=== PATIENT | male | born 1970 | race Caucasian/White ===

== ENCOUNTER → 2017-09-24 | Outpatient (REF) | payer OTHER ==
[2017-09-24 12:57] LABS: BASO # 0.1 10^3/uL (0.0-0.2); BASO % 1.1 % (0.0-1.0); EOS # 0.3 10^3/uL (0.0-0.50); EOS % 4.2 % (0.0-3.0); HEMATOCRIT 48.3 % (42.0-52.0); HEMOGLOBIN 16.6 g/dl (14.0-18.0); IMMATURE GRANULOCYTE % 0.2 % (0-3.0); LYMPH % 30.7 % (24.0-44.0); MEAN CORPUSCULAR HEMOGLOBIN 30.1 pg (27.0-33.0); MEAN CORPUSCULAR HGB CONC 34.4 g/dl (32.0-36.5); MEAN CORPUSCULAR VOLUME 87.7 fl (80.0-96.0); MONO # 0.6 10^3/uL (0.0-0.8); MONO % 9.2 % (0.0-5.0); NEUTROPHILS # 3.5 10^3/uL (1.8-7.7); NEUTROPHILS % 54.6 % (36.0-66.0); PLATELET COUNT, AUTOMATED 250 10^3/uL (150-450); RED BLOOD COUNT 5.51 10^6/uL (4.30-6.10); RED CELL DISTRIBUTION WIDTH 12.3 % (11.5-14.5); WHITE BLOOD COUNT 6.4 10^3/uL (4.0-10.0)
[2017-09-24 13:13] LABS: ALBUMIN 4.2 GM/DL (3.2-5.2); ALBUMIN/GLOBULIN RATIO 1.24 (1.00-1.93); ALKALINE PHOSPHATASE 97 U/L (45-117); ALT/SGPT 73 U/L (12-78); ANION GAP 8 MEQ/L (8-16); AST/SGOT 33 U/L (7-37); BILIRUBIN,TOTAL 0.8 MG/DL (0.2-1.0); BLOOD UREA NITROGEN 20 MG/DL (7-18); CALCIUM LEVEL 9.3 MG/DL (8.5-10.1); CARBON DIOXIDE LEVEL 32 MEQ/L (21-32); CHLORIDE LEVEL 100 MEQ/L (98-107); CHOLESTEROL LEVEL 243 MG/DL (<200); CHOLESTEROL RISK RATIO 7.838 (<5); GLOMERULAR FILTRATION RATE > 60.0 (>60); GLUCOSE, FASTING 90 MG/DL (70-100); HDL CHOLESTEROL 31 MG/DL (>40); LDL CHOLESTEROL 185.6 MG/DL (<100); NON-HDL-C 212 MG/DL; POTASSIUM SERUM 4.1 MEQ/L (3.5-5.1); SODIUM LEVEL 140 MEQ/L (136-145); TOTAL PROTEIN 7.6 GM/DL (6.4-8.2); TRIGLYCERIDES LEVEL 132 MG/DL (<150); URIC ACID 4.7 MG/DL (3.5-7.2)
[2017-09-24 13:35] LABS: ESTIMATED AVERAGE GLUCOSE 126 MG/DL (60-110)
== END ==
LOC: M LABDRAW1 10:35
DX: Z00.00 Encounter for general adult medical examination without abnormal findings (principal); M10.9 Gout, unspecified (principal); E78.2 Mixed hyperlipidemia; R73.01 Impaired fasting glucose
CPT/HCPCS: 84550

== ENCOUNTER → 2017-11-27 | Outpatient (CLI) | payer OTHER ==
[2017-11-27 15:18] LABS: BASO # 0.1 10^3/uL (0.0-0.2); BASO % 1.4 % (0.0-1.0); EOS # 0.2 10^3/uL (0.0-0.50); EOS % 2.9 % (0.0-3.0); HEMATOCRIT 47.7 % (42.0-52.0); HEMOGLOBIN 16.6 g/dl (13.5-17.5); IMMATURE GRANULOCYTE % 0.3 % (0-3.0); LYMPH # 2.1 10^3/uL (1.5-4.5); LYMPH % 32.2 % (24.0-44.0); MEAN CORPUSCULAR HEMOGLOBIN 29.9 pg (27.0-33.0); MEAN CORPUSCULAR HGB CONC 34.8 g/dl (32.0-36.5); MEAN CORPUSCULAR VOLUME 85.8 fl (80.0-96.0); MONO # 0.6 10^3/uL (0.0-0.8); MONO % 9.2 % (0.0-5.0); NEUTROPHILS # 3.5 10^3/uL (1.8-7.7); PLATELET COUNT, AUTOMATED 251 10^3/uL (150-450); RED BLOOD COUNT 5.56 10^6/uL (4.30-6.10); RED CELL DISTRIBUTION WIDTH 12.4 % (11.5-14.5); WHITE BLOOD COUNT 6.5 10^3/uL (4.0-10.0)
[2017-11-27 16:04] LABS: ALBUMIN 4.4 GM/DL (3.2-5.2); ALBUMIN/GLOBULIN RATIO 1.22 (1.00-1.93); ALKALINE PHOSPHATASE 92 U/L (45-117); ALT/SGPT 70 U/L (12-78); AMYLASE 39 U/L (25-115); ANION GAP 7 MEQ/L (8-16); AST/SGOT 35 U/L (7-37); BLOOD UREA NITROGEN 17 MG/DL (7-18); CALCIUM LEVEL 9.6 MG/DL (8.5-10.1); CARBON DIOXIDE LEVEL 30 MEQ/L (21-32); CHLORIDE LEVEL 103 MEQ/L (98-107); CREATININE FOR GFR 1.16 MG/DL (0.70-1.30); GLOMERULAR FILTRATION RATE > 60.0 (>60); GLUCOSE, FASTING 104 MG/DL (70-100); LIPASE 280 U/L (73-393); POTASSIUM SERUM 4.3 MEQ/L (3.5-5.1); SODIUM LEVEL 140 MEQ/L (136-145)
== END ==
LOC: M WUC 13:17
DX: R10.84 Generalized abdominal pain (principal)
CPT/HCPCS: 82150

== ENCOUNTER 2018-07-31 16:27 | Emergency (ER) | payer OTHER ==
[~2018-07-31] VITALS: Ht 182.9 cm; Wt 122.7 kg
[2018-07-31 16:27] VITALS: BP 162/101
[~2018-07-31 16:27] MED LIST: AUGM875T28 PO; AVEL1TAB3 PO; CRES40TA PO; GUAI1SOL7 PO; LORA-243 PO; MELO15TA28 PO; OMEP40CA2 PO; ONDA8TAB8 PO; OXYC1TAB23 PO; PROAAER10 INH; ZYLO300T6 PO
--- NOTE | 2018-07-31 17:43 | REP ---
Right shoulder: Three views. History: Injury in a fall. Findings: Three views of the right shoulder demonstrate normal alignment of the glenohumeral and acromioclavicular joints. Periarticular soft tissues are unremarkable. No fracture is seen. Impression: No fracture noted. Electronically Signed by Franklin Michaud MD 07/31/2018 06:25 P
[2018-07-31] MEDS ORDERED: NORCOTAB PO (17:47)
[2018-07-31] MEDS ORDERED: IBUP-1022 PO (17:47)
== END 2018-07-31 18:38 | disposition home or self-care (01) ==
LOC: M ED 16:27
DX: S40.011A Contusion of right shoulder, initial encounter (principal); W19.XXXA Unspecified fall, initial encounter; Y92.89 Other specified places as the place of occurrence of the external cause; Y99.0 Civilian activity done for income or pay; M10.9 Gout, unspecified; Z88.8 Allergy status to other drugs, medicaments and biological substances; Z79.899 Other long term (current) drug therapy

== ENCOUNTER 2018-10-27 06:50 | Day surgery (SDC) | payer OTHER ==
[~2018-10-27] VITALS: Ht 177.8 cm; Wt 132.0 kg
[~2018-10-27 06:50] MED LIST changes: +IBUP-1022 PO; +LISI10TA4 PO; +LR 1,000 ML IV ONE; +NORCOTAB PO
[2018-10-27] MEDS ORDERED: dexameTHASONE 10 MG/1 ML VIAL PRES.FREE (J1100) ONE (06:51)
[2018-10-27] MEDS ORDERED: LIDOCAINE 1% MDV 20ML VIAL ONE (06:51)
[2018-10-27] MEDS ORDERED: BUPIVACAINE/EPIN 0.25% 30 ML VIAL ONE (06:51)
[2018-10-27] MEDS ORDERED: fentaNYL 100 MCG/2 ML INJECTION (J3010) As Ordered ONE (07:41)
[2018-10-27] MEDS ORDERED: MIDAZOLAM INJ 2 MG/2 ML VIAL (J2250) As Ordered ONE ×2 (07:41→07:47)
[2018-10-27] MEDS ORDERED: LIDOCAINE 2% INJ 100 MG/5 ML SDV (FOR ANES.) As Ordered ONE (07:46)
[2018-10-27] MEDS ORDERED: PROPOFOL 200 MG/20 ML VIAL As Ordered ONE (07:46)
[2018-10-27] MEDS ORDERED: fentaNYL 250 MCG/5 ML INJECTION (J3010) As Ordered ONE (07:46)
[2018-10-27] MEDS ORDERED: ROCURONIUM BROMIDE 50 MG/5 ML VIAL As Ordered ONE (07:46)
[2018-10-27] MEDS ORDERED: EPINEPHrine 1MG/ML INJ 30ML MD-VIAL As Ordered ONE (08:13)
[2018-10-27] MEDS ORDERED: LIDOCAINE 1% MDV 20ML VIAL As Ordered ONE (08:13)
[2018-10-27] MEDS ORDERED: fentaNYL 100 MCG/2 ML INJECTION (J3010) IV ONE (08:30)
[2018-10-27] MEDS ORDERED: MIDAZOLAM INJ 2 MG/2 ML VIAL (J2250) IV ONE (08:30)
[2018-10-27] MEDS ORDERED: GLYCOPYRROLATE INJ 0.2 MG/ML 2 ML VIAL As Ordered ONE (08:39)
[2018-10-27] MEDS ORDERED: ceFAZolin 1GM INJ (J0690 PER 500MG) As Ordered ONE (08:53)
[2018-10-27] MEDS ORDERED: KETOROLAC 60 MG/2 ML VIAL (J1885) As Ordered ONE (09:55)
[2018-10-27] MEDS ORDERED: METOCLOPRAMIDE INJ 10MG/2ML VIAL (J2765) As Ordered ONE (09:55)
[2018-10-27] MEDS ORDERED: ONDANSETRON 4MG/2ML VIAL (J2405) As Ordered ONE (09:55)
[2018-10-27] MEDS ORDERED: dexameTHASONE 4 MG/ML 1ML VIAL (J1100) As Ordered ONE (09:55)
[2018-10-27] MEDS ORDERED: SUGAMMADEX SODIUM 500 MG/5 ML VIAL (BRIDION) As Ordered ONE (09:55)
[2018-10-27] MEDS ORDERED: fentaNYL 100 MCG/2 ML INJECTION (J3010) IV PRN (12:00)
[2018-10-27] MEDS ORDERED: ONDANSETRON 4MG/2ML VIAL (J2405) IV PRN (12:00)
[2018-10-27] MEDS ORDERED: LR 1,000 ML IV SCH ×2 (12:00→12:30)
[2018-10-27] MEDS ORDERED: NORCO, ANEXSIA 5/325MG TABLET (HYDROcodone/ACETAMINOPHEN) PO PRN (12:00)
[2018-10-27 13:50] VITALS: BP 166/89
[2018-10-27] MEDS ORDERED: IBUP-1022 PO (21:09)
--- NOTE | 2018-10-28 07:24 | RO ---
DATE OF PROCEDURE: 10/27/2018 PREOPERATIVE DIAGNOSES: 1. Right shoulder rotator cuff tear. 2. Right shoulder biceps tendon subluxation. 3. Right shoulder impingement. POSTOPERATIVE DIAGNOSES: 1. Right shoulder rotator cuff tear. 2. Right shoulder biceps tendon subluxation. 3. Right shoulder impingement. 4. Anterior, superior and posterior labral tearing. PROCEDURE: 1. Right shoulder arthroscopic rotator cuff repair (subscapularis). 2. Right shoulder open subpectoral biceps tenodesis. 3. Right shoulder arthroscopic labral debridement including anterior, superior and posterior labrum. 4. Right shoulder arthroscopic subacromial decompression. SURGEON: Dr. Rafa oCles. COOK HOUSE SUPERVISOR: AKIRA Magaña ANESTHESIA: General with preoperative nerve block. IV FLUIDS: Lactated Ringer's. ESTIMATED BLOOD LOSS: 10 mL IMPLANTS: Arthrex proximal biceps button times one and Arthrex 4.75 Peak SwiveLock anchor times one. CLOSURE: Nylon and Monocryl. PROCEDURE: Patient identified in the preoperative holding area. The right arm was marked by myself. He had an interscalene nerve block by anesthesia. He was brought to the operating room, placed supine on a well-padded OR table with an extra large vargas bag. General anesthesia was then induced. He received 3 grams of IV cefazolin within 1 hour of the incision. Examination under anesthesia revealed 170 degrees of forward flexion, 90 of external rotation with his arm at his side and no increased anterior or posterior translation. He was then placed in the left side down lateral decubitus position with an axillary roll and all bony prominences were well padded. He had bilateral Venodyne boots for DVT prophylaxis. The right arm was placed into Arthrex Star sleeve lateral decubitus traction device and 10 pounds of traction were applied. He was secured to the OR table. The right shoulder was then prepped and draped in normal sterile fashion with Chloraprep. Prior to incision, time-out was performed per hospital protocol. Tamiko Modi was present for the entire procedure and participated in all essential portions of the procedure. This included patient positioning and draping, holding the arthroscope, assisting with the placement of the anchor, assisting with the whip stitch of the biceps tendon, performing the wound closure and manipulating the arm for the subscapularis repair. The right shoulder was insufflated with lactated Ringer's. A standard posterior inferior viewing portal made with 11-blade and the 30 degrees arthroscope was introduced. The diagnostic arthroscopy revealed diffuse tearing of the anterior, superior and posterior labrum. Grade 1 chondromalacia diffusely. The articular surface of the SS, IS and SSC were intact. The subscapularis was torn and retracted almost to the glenoid. The long head of the biceps was visualized somewhat medially subluxated. An anterior working portal was established through the rotator interval and a cuff grasper used to grab the subscapularis confirming the a subscapularis repair was required. This necessitated at least a biceps tenotomy and we had discussed biceps tenodesis prior to surgery. Meniscal biter was used to cut the biceps tendon off the superior labrum and it was seen to withdrawn from the joint. Shaver was then used to perform a labral debridement of the frayed superior labrum but as well as the anterior and posterior labrum. I also performed a synovectomy in the rotator interval to skeletonize the subscapularis. I did not release the comma tissue. I then proceeded with an open subpectoral biceps tenodesis. Incision made a 15 blade just lateral to the axilla. Excess fat removed with Bovie cautery and then dissection down to the biceps fascia which was carefully opened with Metzenbaum scissors. The long head of the biceps tendon was identified and retrieved with the right angle clamp. The Arthrex proximal biceps kit was opened and a running locking whip stitch placed with the FiberLoop. Sutures were loaded through the button per routine. Drill hole was made with the appropriate drill bit within the bicipital groove just proximal to the lower edge of the pectoral major tendon. Irrigation used to remove bony debris. Button was passed through the drill hole. Sutures were toggled which flipped the button. The tendon was docked along the bicipital groove. The rough resting tension here was found to be appropriate. Free needle was then used to pass one limb of suture back through the tendon and knots were tied by hand. This nicely restored the resting tension. Excess suture trimmed and discarded. I extensively irrigated the incision multiple times, closed in layered fashion. Deeper fascia closed with #2-0 Vicryl. Then a 2-0 Vicryl, running 3-0 Monocryl. At the end of the case, Steri-Strips were placed. The arthroscope was placed back into the joint and an accessory superolateral portal was created. Additional releases along the anterior, superior and posterior aspects of the subscapularis tendon were performed and the shaver was used to remove all soft tissue off the lesser tuberosity and to remove about 2-3 mm of articular cartilage to somewhat medialized the footprint. The scorpion was then used to pass FiberWire suture through the upper border of the tear to act as a traction stitch. Tahoma tape was then passed with the scorpion further inferior and medial through thick healthy tissue. The traction stitch was replaced as it had been damaged with the final FiberWire and then the FiberWire and Tahoma tape were brought out the original anterior portal loaded through 4.75 mm Peak SwiveLock anchor and the appropriate awl used to create a socket in the lesser tuberosity. The anchor was docked, sutures tensioned by hand. [place] was then malleted and inserted by hand with excellent fixation. This nicely advanced the subscapularis onto the lesser tuberosity. Excess suture trimmed and was cut with arthroscopic continuous pillowcase cutter. The repair was probed and found to be very secure. The arthroscope was then placed in the subacromial space and a lateral working portal established. There was extensive bursitis. I performed an extensive bursectomy with cautery and shaver. The CA ligament was somewhat hypertrophied however, there is no significant subacromial spur. I did not perform an acromioplasty. The shoulder was gently internally and externally rotated. The rotator cuff moved as a unit. I probed the entire supra- and infraspinatus with a switching stick. I did not appreciate any tearing. The supraspinatus had a somewhat thickened appearance and feel consistent with some tendinopathy but no repair or debridement indicated. Shoulder was then irrigated and drained. Portals closed with Nylon suture. Bulky sterile dressing was applied and then he was carefully placed into the R-2 sling. All counts correct times two. Complications none. He was transferred to postanesthesia care unit in stable condition.
== END 2018-10-27 13:50 | disposition home or self-care (01) ==
LOC: M SDC 06:50
PROVIDERS: ATTEND Orthopaedic Surgery
DX: M75.111 Incomplete rotator cuff tear or rupture of right shoulder, not specified as traumatic (principal); M75.41 Impingement syndrome of right shoulder; S43.491A Other sprain of right shoulder joint, initial encounter; S46.111A Strain of muscle, fascia and tendon of long head of biceps, right arm, initial encounter; I10 Essential (primary) hypertension; E78.00 Pure hypercholesterolemia, unspecified; M10.9 Gout, unspecified; K21.9 Gastro-esophageal reflux disease without esophagitis; M12.9 Arthropathy, unspecified; R06.83 Snoring; G47.30 Sleep apnea, unspecified; E66.9 Obesity, unspecified; Z68.38 Body mass index [BMI] 38.0-38.9, adult; Z88.8 Allergy status to other drugs, medicaments and biological substances; Z79.899 Other long term (current) drug therapy; X58.XXXA Exposure to other specified factors, initial encounter; Y93.9 Activity, unspecified; Y92.9 Unspecified place or not applicable; Y99.9 Unspecified external cause status
CPT/HCPCS: 23430; 29826; 29827; 88304; C1713; J0690; J1100; J1885; J2250; J2405; J2765; J3010

== ENCOUNTER 2018-10-27 16:51 | Inpatient (IN) | payer OTHER ==
[~2018-10-27] VITALS: Ht 180.3 cm; Wt 132.8 kg
[~2018-10-27 16:51] MED LIST changes: -LR 1,000 ML IV ONE
[2018-10-27] MEDS ORDERED: IPRATROPIUM 0.5MG/ALBUTEROL 2.5MG INH SOL UD 3ML (DUONEB)(J7620) NEB ONE (17:30)
[2018-10-27 18:32] LABS: VENOUS BASE EXCESS -0.9 (-2.0-2.0); VENOUS HCO3 25.3 MEQ/L (23.0-27.0); VENOUS O2 SATURATION 77.7 % (60.0-80.0); VENOUS PARTIAL PRESSURE CO2 47.1 mmHg (38.0-50.0); VENOUS PH 7.348 UNITS (7.330-7.430); VENOUS STANDARD HCO3 23.2 MEQ/L; VENOUS TOTAL CO2 26.7 MEQ/L (24.0-28.0)
[2018-10-27 18:38] LABS: BASO % 0.1 % (0.0-1.0); HEMOGLOBIN 15.9 g/dl (13.5-17.5); LYMPH # 0.8 10^3/uL (1.5-4.5); LYMPH % 6.6 % (24.0-44.0); MEAN CORPUSCULAR HEMOGLOBIN 30.4 pg (27.0-33.0); MEAN CORPUSCULAR HGB CONC 35.3 g/dl (32.0-36.5); MONO # 0.1 10^3/uL (0.0-0.8); NEUTROPHILS # 10.5 10^3/uL (1.8-7.7); PLATELET COUNT, AUTOMATED 232 10^3/uL (150-450); RED BLOOD COUNT 5.23 10^6/uL (4.30-6.10); WHITE BLOOD COUNT 11.4 10^3/uL (4.0-10.0)
[2018-10-27 18:53] LABS: INR 1.18; PROTHROMBIN TIME 15.2 SECONDS (12.1-14.4)
[2018-10-27 18:57] LABS: BLOOD UREA NITROGEN 18 MG/DL (7-18); CREATININE FOR GFR 1.16 MG/DL (0.70-1.30); GLOMERULAR FILTRATION RATE > 60.0 (>60); GLUCOSE, FASTING 183 MG/DL (70-100)
[2018-10-27 18:58] LABS: CALCIUM LEVEL 9.4 MG/DL (8.5-10.1); CARBON DIOXIDE LEVEL 26 MEQ/L (21-32); CHLORIDE LEVEL 104 MEQ/L (98-107); CPK CREATINE PHOSPHOKINASE 351 U/L (39-308); MB/CK RELATIVE INDEX 0.68 (< OR =4); POTASSIUM SERUM 4.8 MEQ/L (3.5-5.1); SODIUM LEVEL 137 MEQ/L (136-145); TROPONIN I < 0.02 NG/ML (< 0.10)
[2018-10-27] MEDS ORDERED: ISOVUE-370 76% 125ML VIAL (Q9967 PER ML) As Ordered ONE ×2 (19:08→19:36)
--- NOTE | 2018-10-27 20:14 | REP ---
Clinical: Acute chest pain. Technique: Axial contrast enhanced images from the thoracic inlet to the upper abdomen using 100 ml Isovue 370 intravenous contrast material with coronal and sagittal re-formations. Findings: Satisfactory enhancement of the pulmonary vasculature is achieved but evaluation is limited due to respiratory motion artifact. No obvious pulmonary embolus identified. Small to moderate right lower lobe consolidation with air bronchograms along with bibasilar atelectasis (right greater than left) is appreciated. No pleural effusion. No pneumothorax. No significant adenopathy. Mediastinum demonstrates normal thoracic aorta and heart/pericardium. Musculoskeletal structures are intact. Impression: 1. No obvious pulmonary embolus. 2. Small/moderate right lower lobe consolidation and bibasilar atelectasis (right greater than left). Electronically Signed by Justo Encarnacion MD 10/27/2018 08:04 P
[2018-10-27] MEDS: LISINOPRIL 10 MG TAB PO SCH (21:00)
[2018-10-27] MEDS ORDERED: MORPHINE 4 MG/ML 1ML VIAL/SYRINGE (J2270) IV ONE (21:00)
[2018-10-27] MEDS ORDERED: diphenhydrAMINE INJ 50MG/ML VIAL (J1200) IV STA (21:07)
[2018-10-27] MEDS ORDERED: IBUP-1022 PO (21:09)
--- NOTE | 2018-10-27 21:23 | ECGEPIP ---
Stationary ECG Study 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
[2018-10-27] MEDS ORDERED: ONDANSETRON 4 MG TAB (S0181) PO PRN (21:30)
[2018-10-27] MEDS ORDERED: BISACODYL 5 MG TAB PO PRN (21:30)
[2018-10-27] MEDS ORDERED: ACETAMINOPHEN TAB 650MG DOSE (2X325MG) PO PRN (21:30)
--- NOTE | 2018-10-27 22:19 | HPEPDOC ---
[facility] Medical History & Physical Date of Admission Oct 27, 2018 History and Physical CHIEF COMPLAINT: [DYSPNEA ] HISTORY OF PRESENT ILLNESS: This is 47 yo male with pmhx of HTN, HLD who had right rotator cuff repair done today and was discharged home. Prior to being dc home, patient's O2 was in the4 low 90's, but he improved later.Per his he reached home at 2pm and by 5pm he became so sob that they had to come to the ED. Patient recently traveled to and from [place], came back last week and was there for 2 weeks. He denied sick contact, fever, chills, chest pain, cough. He stated that his only symptom was the sob he experienced today. ROS - all 14 point review of system is negative except for whats listed in HPI PAST MEDICAL HISTORY: 1. HLD 2. HTN 3. PREDIABETES PAST SURGICAL HISTORY: 1. RIGHT ROTATOR REPAIR 2. xanthoma removal SOCIAL HISTORY: Marital status: [y]. Resides in: [home] Tobacco use:[n] ETOH: [n] Illicit drug use: [n] Tattoos done unprofessionally: [n]. IV drug use: [n] FAMILY HISTORY: Father: [htn, hld, dm2] Mother: [htn, hld] ALLERGIES: Please see below. HOME MEDICATIONS: Please see below. Physical exam Gen: NAD, healthy appearing , HEENT: normocephalic, atraumatic, no discharge from ears or nose, no oropharyngeal erythema or exudate, neck is supple, no lymphadenopathy, trachea midline CVS: RRR, normal S1n S2, no murmur, rubs, or gallops, no edema, no jvd Resp: LCTAB, no rhonchi, wheezes or crackles Abd : soft nontender, normal bowel sounds, no rebound tenderness or guarding MSK: no swelling, right shoulder in clean dressing, full range of motion except for right arm due to sling and recent surgery , strength 5/5 skin - no rashes ,ulcers or nodules Neuro: AOAx3, no confusion, no focal deficit Psych: anxious. good judgment LABORATORY DATA: See below. IMAGING: [CTA - no PE, RLL PNA] MICROBIOLOGY: Please see below. ASSESSMENT and Plan Sob likely 2/2 CAP - consolidation noted on CT chest - start cefriaxone and azithromycin - incentive spirometer - f/u sputum cx - ivf 80cc/hr for contrast c/wv home meds- lisinpril for htn, crestor for hld and allopurinol for gout dvt ppx - heparin full code, from home, no svc Vital Signs Vital Signs Date Time Temp Pulse Resp B/P (MAP) Pulse Ox O2 Delivery O2 Flow Rate FiO2 10/27/18 20:53 18 10/27/18 18:30 96.4 128/60 (82) 10/27/18 18:21 98 91 Nasal Cannula 2.0 Laboratory Data Labs 24H Laboratory Tests 2 10/27/18 18:25: Immature Granulocyte % (Auto) 0.3, White Blood Count 11.4H, Red Blood Count 5.23, Hemoglobin 15.9, Hematocrit 45.0, Mean Corpuscular Volume 86.0, Mean Corpuscular Hemoglobin 30.4, Mean Corpuscular Hemoglobin Concent 35.3, Red Cell Distribution Width 12.4, Platelet Count 232, Neutrophils (%) (Auto) 92.0H, Lymphocytes (%) (Auto) 6.6L, Monocytes (%) (Auto) 1.0, Eosinophils (%) (Auto) 0.0, Basophils (%) (Auto) 0.1, Neutrophils # (Auto) 10.5H, Lymphocytes # (Auto) 0.8L, Monocytes # (Auto) 0.1, Eosinophils # (Auto) 0.0, Basophils # (Auto) 0.0, Nucleated Red Blood Cells % (auto) 0.0, Prothrombin Time 15.2H, Prothromb Time International Ratio 1.18, Blood Gas Bicarbonate Standard 23.2, Venous Blood pH 7.348, Venous Blood Partial Pressure CO2 47.1, Venous Blood Partial Pressure O2 44.0, Venous Blood Total Carbon Dioxide 26.7, Venous Blood HCO3 25.3, Venous Blood Oxygen Saturation 77.7, Venous Blood Base Excess -0.9, Anion Gap 7L, Glomerular Filtration Rate > 60.0, Blood Urea Nitrogen 18, Creatinine 1.16, Sodium Level 137, Potassium Level 4.8, Chloride Level 104, Carbon Dioxide Level 26, Calcium Level 9.4, Total Creatine Kinase 351H, Creatine Kinase MB 2.0, Creatine Kinase MB Relative Index 0.68, Troponin I < 0.02 CBC/BMP Laboratory Tests 10/27/18 18:25 Red Blood Count 5.23, Mean Corpuscular Volume 86.0, Mean Corpuscular Hemoglobin 30.4, Mean Corpuscular Hemoglobin Concent 35.3, Red Cell Distribution Width 12.4, Neutrophils (%) (Auto) 92.0 H, Lymphocytes (%) (Auto) 6.6 L, Monocytes (%) (Auto) 1.0, Eosinophils (%) (Auto) 0.0, Basophils (%) (Auto) 0.1, Neutrophils # (Auto) 10.5 H, Lymphocytes # (Auto) 0.8 L, Monocytes # (Auto) 0.1, Eosinophils # (Auto) 0.0, Basophils # (Auto) 0.0, Calcium Level 9.4, Total Creatine Kinase 351 H Home Medications Scheduled Allopurinol (Zyloprim) 300 Mg Tab, 300 MG PO QHS Lisinopril (Lisinopril) 10 Mg Tab, 10 MG PO QHS Loratadine (Loratadine) 10 Mg Tab, 10 MG PO QHS Omeprazole (Omeprazole) 40 Mg Cap, 40 MG PO QHS Rosuvastatin Calcium (Crestor) 40 Mg Tab, 40 MG PO QHS Scheduled PRN Ibuprofen (Ibuprofen) 600 Mg Tab, 600 MG PO Q6H PRN for PAIN Oxycodone/Acetaminophen (Oxycodone/Acetaminophen 5-325 mg) 1 Tab Tab, 1 TAB PO Q6H PRN for PAIN Allergies Coded Allergies: Atorvastatin (Verified Adverse Reaction, Intermediate, "BODY ACHES", 09/30/18) BIPIN COYNE MD Oct 27, 2018 22:19
[2018-10-27] MEDS: ALLOPURINOL 300 MG TAB PO SCH (23:16)
[2018-10-27] MEDS: LORATADINE 10 MG TAB PO SCH (23:16)
[2018-10-27] MEDS: ROSUVASTATIN 10 MG TAB (CRESTOR) PO SCH (23:16)
[2018-10-27] MEDS: NS 1,000 ML IV SCH (23:17)
[2018-10-27] MEDS: AZITHROMYCIN INJ 500 MG, VIAL MATE ADAPTER 1 EACH in D5W 250 ML IV SCH (23:17)
[2018-10-28] VITALS (15 sets, daily range): BP systolic 118–169; BP diastolic 73–92; O2SAT 90–97
[2018-10-28] MEDS: cefTRIAXone SOD 1 GM in D5W MINI-BAG PLUS 50 ML IV SCH (00:37)
[2018-10-28 00:55] LABS: ALBUMIN 4.2 GM/DL (3.2-5.2); ALT/SGPT 84 U/L (12-78); BILIRUBIN,TOTAL 0.6 MG/DL (0.2-1.0); BLOOD UREA NITROGEN 16 MG/DL (7-18); CALCIUM LEVEL 9.1 MG/DL (8.5-10.1); CARBON DIOXIDE LEVEL 28 MEQ/L (21-32); CHLORIDE LEVEL 103 MEQ/L (98-107); CREATININE FOR GFR 1.12 MG/DL (0.70-1.30); GLOMERULAR FILTRATION RATE > 60.0 (>60); GLUCOSE, FASTING 172 MG/DL (70-100); POTASSIUM SERUM 4.2 MEQ/L (3.5-5.1); SODIUM LEVEL 137 MEQ/L (136-145); TOTAL PROTEIN 7.4 GM/DL (6.4-8.2)
[2018-10-28 01:24] LABS: ABG BASE EXCESS -2.3 (-2.0-2.0); ABG HCO3 22.1 MEQ/L (22.0-26.0); ABG O2 SATURATION 91.5 % (95.0-99.0); ABG PARTIAL PRESSURE CO2 37.5 mmHg (35.0-45.0); ABG PARTIAL PRESSURE O2 64.5 mmHg (75.0-100.0); ABG STANDARD HCO3 22.4 MEQ/L (22.0-26.0); ABG TOTAL CO2 23.3 MEQ/L (22.0-29.0); ABG pH (ARTERIAL) 7.389 UNITS (7.350-7.450)
[2018-10-28 01:59] LABS: INFLUENZA A AMPLIFICATION NEGATIVE (NEGATIVE); INFLUENZA B AMPLIFICATION NEGATIVE (NEGATIVE)
[2018-10-28] MEDS: MORPHINE 4 MG/ML 1ML VIAL/SYRINGE (J2270) IV PRN ×4 (02:16→20:14)
[2018-10-28] MEDS ORDERED: CEPACOL LOZENGE PO PRN (02:30)
[2018-10-28] MEDS: guaiFENesin ER 600 MG TAB PO SCH ×3 (02:30→20:07)
[2018-10-28 05:15] LABS: BASO % 0.1 % (0.0-1.0); EOS % 0.1 % (0.0-3.0); HEMATOCRIT 42.8 % (42.0-52.0); HEMOGLOBIN 14.7 g/dl (13.5-17.5); LYMPH # 1.2 10^3/uL (1.5-4.5); LYMPH % 7.4 % (24.0-44.0); MEAN CORPUSCULAR HEMOGLOBIN 29.9 pg (27.0-33.0); MEAN CORPUSCULAR HGB CONC 34.3 g/dl (32.0-36.5); MONO % 6.2 % (0.0-5.0); NEUTROPHILS # 13.3 10^3/uL (1.8-7.7); NEUTROPHILS % 85.7 % (36.0-66.0); PLATELET COUNT, AUTOMATED 234 10^3/uL (150-450); RED BLOOD COUNT 4.92 10^6/uL (4.30-6.10); WHITE BLOOD COUNT 15.5 10^3/uL (4.0-10.0)
[2018-10-28 05:40] LABS: BLOOD UREA NITROGEN 15 MG/DL (7-18); CALCIUM LEVEL 9.1 MG/DL (8.5-10.1); CARBON DIOXIDE LEVEL 26 MEQ/L (21-32); CHLORIDE LEVEL 103 MEQ/L (98-107); CREATININE FOR GFR 1.04 MG/DL (0.70-1.30); GLOMERULAR FILTRATION RATE > 60.0 (>60); GLUCOSE, FASTING 145 MG/DL (70-100); MAGNESIUM LEVEL 1.8 MG/DL (1.8-2.4); SODIUM LEVEL 138 MEQ/L (136-145)
[2018-10-28] MEDS: HEPARIN SOD (PORCINE) 5000 UNITS/ML VIAL SC SCH ×3 (05:57→20:07)
[2018-10-28] MEDS: DOCUSATE SODIUM 100 MG CAP PO SCH ×2 (08:46→20:06)
[2018-10-28] MEDS: PERCOCET 5MG/325MG TAB PO PRN ×4 (08:46→22:57)
[2018-10-28] MEDS: NS 1,000 ML IV SCH ×2 (12:10→17:07)
[2018-10-28] MEDS: IBUPROFEN 600 MG TAB PO PRN (17:11)
--- NOTE | 2018-10-28 19:50 | IPN ---
DATE: 10/28/2018 SUBJECTIVE: The patient is seen and examined in the room today. The patient does complain about persistent right shoulder pain where he had rotator cuff repair. Patient also complains about increased cough. The patient has some sputum production. Denies any fever or chills. OBJECTIVE: VITAL SIGNS: Temperature is 97.6, pulse is 71, respiratory rate 18, blood pressure is 134/73, pulse oximetry is 96% with two liters nasal cannula. GENERAL: Patient is alert and awake, mild distress secondary to persistent pain. HEENT: Normocephalic, atraumatic. Extraocular motor grossly intact. CARDIOVASCULAR: Positive S1, S2, regular rate. LUNGS: Clear to auscultation bilaterally. ABDOMEN: Soft, nontender. Bowel sounds present. MUSCULOSKELETAL: There is a dressing noted on the right front shoulder. No lower extremity swelling noted. LABORATORY DATA: WBC is 15.5, hemoglobin 14.7, hematocrit 42.8, platelet count is 234. Sodium is 138, potassium 4, chloride 103, carbon dioxide 26, BUN 15, creatinine 1.04, GFR greater than 60, fasting glucose 145, calcium 9.1, magnesium 1.8. ASSESSMENT AND PLAN: 1. Right lower lobe pneumonia. Patient started on empiric antibiotics. I have ordered sputum culture. 2. Recent right rotator cuff repair. Patient does complain about significant pain and pain medication will be adjusted as needed. Will continue to apply ice on the right shoulder to help with pain relief. 3. History of hypertension. Blood pressure in the satisfactory range, on lisinopril. 4. Dyslipidemia. On Crestor. 5. Elevated glucose level. Patient does not have a history of diabetes. Will follow with A1c. 6. Deep vein thrombosis (DVT) prophylaxis. Heparin.
[2018-10-28] MEDS: LISINOPRIL 10 MG TAB PO SCH (20:06)
[2018-10-28] MEDS: ROSUVASTATIN 10 MG TAB (CRESTOR) PO SCH (20:06)
[2018-10-28] MEDS: ALLOPURINOL 300 MG TAB PO SCH (20:06)
[2018-10-28] MEDS: LORATADINE 10 MG TAB PO SCH (20:06)
[2018-10-28] MEDS: AZITHROMYCIN INJ 500 MG, VIAL MATE ADAPTER 1 EACH in D5W 250 ML IV SCH (22:57)
[2018-10-29] VITALS: BP 161/77; O2SAT 96
[2018-10-29] MEDS: cefTRIAXone SOD 1 GM in D5W MINI-BAG PLUS 50 ML IV SCH ×2
[2018-10-29 04:00] VITALS: BP 124/73; O2SAT 96
[2018-10-29] MEDS: NS 1,000 ML IV SCH (04:10)
[2018-10-29] MEDS: PERCOCET 5MG/325MG TAB PO PRN ×4 (04:11→21:25)
[2018-10-29 05:00] VITALS: BP 148/80
[2018-10-29] MEDS: HEPARIN SOD (PORCINE) 5000 UNITS/ML VIAL SC SCH ×3 (05:30→23:01)
[2018-10-29] MEDS: MORPHINE 4 MG/ML 1ML VIAL/SYRINGE (J2270) IV PRN ×5 (05:30→23:12)
[2018-10-29 06:39] LABS: HEMATOCRIT 41.1 % (42.0-52.0); HEMOGLOBIN 14.1 g/dl (13.5-17.5); MEAN CORPUSCULAR HEMOGLOBIN 30.5 pg (27.0-33.0); MEAN CORPUSCULAR HGB CONC 34.3 g/dl (32.0-36.5); PLATELET COUNT, AUTOMATED 212 10^3/uL (150-450); RED BLOOD COUNT 4.62 10^6/uL (4.30-6.10); WHITE BLOOD COUNT 9.9 10^3/uL (4.0-10.0)
[2018-10-29 06:45] LABS: HEMOGLOBIN A1c 6.3 %
[2018-10-29 06:55] LABS: BLOOD UREA NITROGEN 14 MG/DL (7-18); CALCIUM LEVEL 8.5 MG/DL (8.5-10.1); CARBON DIOXIDE LEVEL 28 MEQ/L (21-32); CHLORIDE LEVEL 104 MEQ/L (98-107); CREATININE FOR GFR 0.92 MG/DL (0.70-1.30); GLOMERULAR FILTRATION RATE > 60.0 (>60); GLUCOSE, FASTING 109 MG/DL (70-100); POTASSIUM SERUM 3.8 MEQ/L (3.5-5.1); SODIUM LEVEL 138 MEQ/L (136-145)
[2018-10-29] MEDS: DOCUSATE SODIUM 100 MG CAP PO SCH ×2 (09:04→21:24)
[2018-10-29] MEDS: guaiFENesin ER 600 MG TAB PO SCH ×2 (09:05→21:24)
[2018-10-29] MEDS: IBUPROFEN 600 MG TAB PO PRN (09:06)
[2018-10-29 14:00] VITALS: BP 135/71
--- NOTE | 2018-10-29 16:23 | IPNPDOC ---
Text Note Date of Service The patient was seen on 10/29/18. NOTE SUBJECTIVE: The patient is seen and examined in the room today. The patient states his breathing is improving. His right shoulder pain is improving also. Sputum color is yellow. Denies any fever or chills. OBJECTIVE: VITAL SIGNS: Listed below. GENERAL: Patient is alert and awake, mild distress secondary to persistent pain. HEENT: Normocephalic, atraumatic. Extraocular motor grossly intact. CARDIOVASCULAR: Positive S1, S2, regular rate. LUNGS: Clear to auscultation bilaterally. ABDOMEN: Soft, nontender. Bowel sounds present. MUSCULOSKELETAL: Sutures noted around right front shoulder. No lower extremity swelling noted. LABORATORY DATA: Listed below. ASSESSMENT AND PLAN: #. Right lower lobe pneumonia. - Patient started on empiric antibiotics. Follow up sputum culture. - Continue titrating oxygen as tolerated. #. Recent right rotator cuff repair. - Pain is under better control. Continue applying ice on the right shoulder to help with pain relief. Continue current pain medication regimen. #. History of hypertension. - Blood pressure in the satisfactory range, on lisinopril. #. Dyslipidemia. On Crestor. #. Prediabetes. - A1c 6.3. Continue outpatient followup. #. Deep vein thrombosis (DVT) prophylaxis. Heparin. VS,Fishbone, I+O VS, Fishbone, I+O Laboratory Tests 10/29/18 06:16 Red Blood Count 4.62, Mean Corpuscular Volume 89.0, Mean Corpuscular Hemoglobin 30.5, Mean Corpuscular Hemoglobin Concent 34.3, Red Cell Distribution Width 12.6, Calcium Level 8.5 Vital Signs Date Time Temp Pulse Resp B/P (MAP) Pulse Ox O2 Delivery O2 Flow Rate FiO2 10/29/18 15:30 16 95 10/29/18 14:00 97.6 82 135/71 (92) 2.0 10/29/18 05:00 Nasal Cannula 10/28/18 04:00 93 I&O- Last 24 Hours up to 6 AM 10/29/18 06:00 Intake Total 1680 ml Output Total 500 ml Balance 1180 ml GLADIS BANGURA DO Oct 29, 2018 16:23
[2018-10-29] MEDS: ALLOPURINOL 300 MG TAB PO SCH (21:00)
--- NOTE | 2018-10-29 21:10 | ECGEPIP ---
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
[2018-10-29 21:24] VITALS: BP 141/94
[2018-10-29] MEDS: LISINOPRIL 10 MG TAB PO SCH (21:24)
[2018-10-29] MEDS: ROSUVASTATIN 10 MG TAB (CRESTOR) PO SCH (21:24)
[2018-10-29] MEDS: LORATADINE 10 MG TAB PO SCH (21:24)
[2018-10-29 22:00] VITALS: BP 141/94
[2018-10-29] MEDS: AZITHROMYCIN INJ 500 MG, VIAL MATE ADAPTER 1 EACH in D5W 250 ML IV SCH (23:01)
[2018-10-30] MEDS: cefTRIAXone SOD 1 GM in D5W MINI-BAG PLUS 50 ML IV SCH (00:19)
[2018-10-30 01:55] VITALS: O2SAT 94
[2018-10-30] MEDS: PERCOCET 5MG/325MG TAB PO PRN ×2 (04:36→11:16)
[2018-10-30] MEDS: HEPARIN SOD (PORCINE) 5000 UNITS/ML VIAL SC SCH (05:52)
[2018-10-30 06:00] VITALS: BP 146/85
[2018-10-30 06:18] LABS: HEMATOCRIT 41.6 % (42.0-52.0); HEMOGLOBIN 14.5 g/dl (13.5-17.5); MEAN CORPUSCULAR HEMOGLOBIN 30.3 pg (27.0-33.0); MEAN CORPUSCULAR HGB CONC 34.9 g/dl (32.0-36.5); MEAN CORPUSCULAR VOLUME 86.8 fl (80.0-96.0); PLATELET COUNT, AUTOMATED 208 10^3/uL (150-450); RED BLOOD COUNT 4.79 10^6/uL (4.30-6.10); WHITE BLOOD COUNT 8.4 10^3/uL (4.0-10.0)
[2018-10-30 06:42] LABS: BLOOD UREA NITROGEN 12 MG/DL (7-18); CALCIUM LEVEL 8.6 MG/DL (8.5-10.1); CARBON DIOXIDE LEVEL 31 MEQ/L (21-32); CHLORIDE LEVEL 101 MEQ/L (98-107); CREATININE FOR GFR 1.04 MG/DL (0.70-1.30); GLOMERULAR FILTRATION RATE > 60.0 (>60); GLUCOSE, FASTING 92 MG/DL (70-100); MAGNESIUM LEVEL 1.9 MG/DL (1.8-2.4); POTASSIUM SERUM 3.7 MEQ/L (3.5-5.1); SODIUM LEVEL 139 MEQ/L (136-145)
[2018-10-30] MEDS: guaiFENesin ER 600 MG TAB PO SCH (09:20)
[2018-10-30] MEDS: DOCUSATE SODIUM 100 MG CAP PO SCH (09:20)
[2018-10-30] MEDS: MORPHINE 4 MG/ML 1ML VIAL/SYRINGE (J2270) IV PRN (09:21)
[2018-10-30] MEDS ORDERED: AZIT500T2 PO (11:58)
[2018-10-30] MEDS ORDERED: CEFD1CAP8 PO (11:58)
--- NOTE | 2018-10-30 21:01 | DSES ---
DATE OF ADMISSION: 10/29/2018 DATE OF DISCHARGE: 10/30/2018 PRIMARY CARE PROVIDER: Tamiko Pina MD DISCHARGE DIAGNOSES: 1. Right lower lobe pneumonia. 2. Right rotator cuff repair. 3. Hypertension. 4. Dyslipidemia. 5. Prediabetes. HOSPITALIZATION COURSE: The patient is a 47-year-old gentleman who had right rotator cuff surgery on 10/27/2018, presented to [facility] Room on 10/27/2018 evening time with a complaint of shortness of breath. Diagnostic workup showed the patient has right lower lobe pneumonia and hospitalist team was called for admission. Diagnostic workup initiated and patient started on empiric antibiotics. Patient also complained about significant discomfort at the right rotator cuff surgical site. Pain medication adjusted for the patient. With antibiotic regimen, patient started to show improvement of respiration. On 10/30/2018, patient was determined stable for discharge with the recommendation to followup with his primary care provider, Dr. Tamiko Pina, in 1 week. Patient recommended to followup with orthopedic team at the scheduled team. VITAL SIGNS ON THE DAY OF DISCHARGE: Showed a temperature of 97.8, pulse 69, respiratory rate 18, blood pressure 146/85, pulse oximetry is 95% in room air. LABORATORY DATA: On the day of discharge - WBC 8.4, hemoglobin 14.5, hematocrit 41.6, platelet count 208. Sodium is 139, potassium 3.7, chloride 101, carbon dioxide 31, BUN 12, creatinine 1.04, GFR greater than 60, fasting glucose is 92, calcium is 8.6, magnesium 1.9. Influenza is negative. Microbiology: Sputum culture showed normal adriana. IMAGING STUDIES: CT angiogram of the chest demonstrated no obvious pulmonary embolus. Small/moderate right lower lobe consolidation and bibasilar atelectasis. DISCHARGE MEDICATIONS: - azithromycin 500 mg by mouth daily for two more days - Omnicef 300 mg by mouth twice a day for two more days - allopurinol 300 mg by mouth nightly - ibuprofen 600 mg by mouth every 6 hours as needed - lisinopril 10 mg by mouth nightly - loratadine 10 mg by mouth nightly - omeprazole 40 mg by mouth nightly - Percocet 5/325 one tablet by mouth every 6 hours as needed - Crestor 40 mg by mouth nightly DISCHARGE INSTRUCTIONS: Discontinue line. Discharge home. Activity as tolerated. Patient recommended to followup with primary care provider, Tamiko Pina, in 1 week. Patient recommended to followup with orthopedic team at the scheduled time. DISCHARGE CONDITION: Fair. DISCHARGE TIME: Greater than 30 minutes.
== END 2018-10-30 12:27 | disposition home or self-care (01) | DRG 139 ==
LOC: M ED 16:51 → M ED INP 21:26 → M PCU 10-28 01:36 → M MSPAV 10-29 04:58 → OBSVTOIN 10-29 10:23
PROVIDERS: ADMIT Internal Medicine; ATTEND Internal Medicine
DX: J18.9 Pneumonia, unspecified organism (principal); I10 Essential (primary) hypertension; E78.5 Hyperlipidemia, unspecified; G89.18 Other acute postprocedural pain; R73.03 Prediabetes; Z79.899 Other long term (current) drug therapy; Z88.8 Allergy status to other drugs, medicaments and biological substances; Z98.890 Other specified postprocedural states

== ENCOUNTER → 2019-06-29 | Outpatient (REF) | payer OTHER ==
[~2019-06-29] MED LIST changes: +AZIT500T5 PO; +CEFD1CAP8 PO; +HYDR-3715 PO; -NORCOTAB PO; -OMEP40CA2 PO; +OMEP40CA97 PO
[2019-06-29 13:06] LABS: ALBUMIN 4.3 GM/DL (3.2-5.2); ALT/SGPT 76 U/L (12-78); BILIRUBIN,TOTAL 0.8 MG/DL (0.2-1.0); BLOOD UREA NITROGEN 18 MG/DL (7-18); CALCIUM LEVEL 9.5 MG/DL (8.5-10.1); CARBON DIOXIDE LEVEL 30 MEQ/L (21-32); CHLORIDE LEVEL 104 MEQ/L (98-107); CHOLESTEROL LEVEL 234 MG/DL (<200); CREATININE FOR GFR 1.11 MG/DL (0.70-1.30); GLOMERULAR FILTRATION RATE > 60.0 (>60); GLUCOSE, FASTING 124 MG/DL (70-100); HDL CHOLESTEROL 33 MG/DL (>40); LDL CHOLESTEROL 181 MG/DL (<100); NON-HDL-C 201 MG/DL; POTASSIUM SERUM 3.9 MEQ/L (3.5-5.1); SODIUM LEVEL 139 MEQ/L (136-145); TOTAL PROTEIN 7.5 GM/DL (6.4-8.2); TRIGLYCERIDES LEVEL 99 MG/DL (<150)
== END ==
LOC: M LABDRAW1 11:40
PROVIDERS: ATTEND Physician Assistant
DX: Z00.00 Encounter for general adult medical examination without abnormal findings (principal)

== ENCOUNTER 2019-09-25 18:48 | Emergency (ER) | payer OTHER ==
[~2019-09-25] VITALS: Ht 180.3 cm; Wt 129.4 kg
[2019-09-25] MEDS: HYDROMORPHONE HCL 0.5 MG/ 0.5 ML SYRINGE (J1170 PER 1) IV PRN ×2 (19:41→21:00)
--- NOTE | 2019-09-25 19:51 | REP ---
Right forearm two views : There is no fracture or dislocation. Mineralization and joint spaces are normal. There are no calcifications or foreign bodies. Impression: Negative right forearm . Electronically Signed by Miguel Ramon MD 09/25/2019 07:42 P
--- NOTE | 2019-09-25 19:54 | REP ---
Right hand four views: There are no comparisons. There is soft tissue edema posteriorly. There is question of a nondisplaced fracture in the shaft of the fifth digit metacarpal. This should be correlated with clinical point tenderness. Follow-up is recommended. There is no other fracture. No dislocation. Mineralization and joint spaces are unremarkable. Electronically Signed by Miguel Ramon MD 09/25/2019 07:45 P
[2019-09-25] MEDS ORDERED: fentaNYL 100 MCG/2 ML INJECTION (J3010) IV ONE (20:15)
[2019-09-25] MEDS ORDERED: KETOROLAC 30 MG/ML VIAL (J1885) As Ordered ONE (20:57)
[2019-09-25] MEDS ORDERED: KETOROLAC 30 MG/ML VIAL (J1885) IV ONE (21:00)
[2019-09-25] MEDS ORDERED: OXYCODONE/APAP 5MG/325MG(BULK FOR ED) 1 TABLET PO ONE (23:30)
[2019-09-25 23:39] VITALS: BP 154/89
--- NOTE | 2019-09-26 06:42 | IPN ---
DATE: 09/25/2019 CHIEF COMPLAINT: Right hand crush injury and fifth metacarpal fracture. HISTORY OF PRESENT ILLNESS: This 48-year-old man sustained a crush injury. We have been monitoring him in the emergency department for signs or symptoms of worsening swelling, compartment syndrome of this hand. PHYSICAL EXAMINATION: On physical exam he still appears comfortable. The swelling is the same. The compartments of his hand, thenar, hypothenar eminences as well as dorsally in the hand are nice and soft. A little bit of swelling, normal. The hand is warm and well perfused with a good radial pulse. No pain on passive stretch of the fingers, thumb, or wrist. Forearm compartments are equally soft. ASSESSMENT AND PLAN: Placed a ulnar gutter splint of the wrist in 30 degrees extension with 4th and 5th metacarpal flexed down to 80-90 degrees in a position of safety. I have asked him to followup in a weeks' time. Waned him about other signs of compartment syndrome and if he feels like the splint is exclusive of or not helping or making his pain or symptoms worsen then he can definitely take it off, but in my opinion he is safe to be discharged home. I communicated this to the emergency room physician as well, Dr. Reyes. GISELL
== END 2019-09-25 23:41 | disposition home or self-care (01) ==
LOC: M ED 18:48
DX: S60.911A Unspecified superficial injury of right wrist, initial encounter (principal); W22.8XXA Striking against or struck by other objects, initial encounter; Y92.59 Other trade areas as the place of occurrence of the external cause; Y93.89 Activity, other specified; Y99.0 Civilian activity done for income or pay; I10 Essential (primary) hypertension; E78.5 Hyperlipidemia, unspecified; Z79.899 Other long term (current) drug therapy; Z88.8 Allergy status to other drugs, medicaments and biological substances; Z88.5 Allergy status to narcotic agent
CPT/HCPCS: 73090; 73130; 96374; 96375; 96376; 99284; J1170; J1885; J3010

== ENCOUNTER → 2020-02-09 | Outpatient (CLI) | payer BC ==
[~2020-02-09] MED LIST changes: +HYDR-643 PO
[2020-02-09 10:18] LABS: ALBUMIN 3.9 GM/DL (3.2-5.2); ALT/SGPT 66 U/L (12-78); BILIRUBIN,TOTAL 0.5 MG/DL (0.2-1.0); BLOOD UREA NITROGEN 19 MG/DL (7-18); CARBON DIOXIDE LEVEL 27 MEQ/L (21-32); CHLORIDE LEVEL 107 MEQ/L (98-107); CHOLESTEROL LEVEL 229 MG/DL (<200); CHOLESTEROL RISK RATIO 7.896 (<5); GLOMERULAR FILTRATION RATE > 60.0 (>60); GLUCOSE, FASTING 114 MG/DL (70-100); HDL CHOLESTEROL 29 MG/DL (>40); LDL CHOLESTEROL 179 MG/DL (<100); NON-HDL-C 200 MG/DL; POTASSIUM SERUM 4.2 MEQ/L (3.5-5.1); SODIUM LEVEL 142 MEQ/L (136-145); TOTAL PROTEIN 7.5 GM/DL (6.4-8.2); TRIGLYCERIDES LEVEL 105 MG/DL (<150)
[2020-02-09 10:31] LABS: HEMOGLOBIN A1c 6.6 %
== END ==
LOC: M WUC 08:14
PROVIDERS: ATTEND Physician Assistant Medical
DX: Z00.00 Encounter for general adult medical examination without abnormal findings (principal); E78.2 Mixed hyperlipidemia; I10 Essential (primary) hypertension; R73.01 Impaired fasting glucose

== ENCOUNTER → 2020-04-26 | Outpatient (CLI) | payer BC ==
[2020-04-26 16:13] LABS: BASO # 0.1 10^3/uL (0.0-0.2); BASO % 1.1 % (0.0-1.0); EOS # 0.4 10^3/uL (0.0-0.5); EOS % 5.1 % (0.0-3.0); HEMOGLOBIN 15.2 g/dl (13.5-17.5); LYMPH # 1.8 10^3/uL (1.5-5.0); MEAN CORPUSCULAR HEMOGLOBIN 29.9 pg (27.0-33.0); MEAN CORPUSCULAR HGB CONC 33.8 g/dl (32.0-36.5); MEAN CORPUSCULAR VOLUME 88.4 fl (80.0-96.0); MONO # 0.8 10^3/uL (0.0-0.8); NEUTROPHILS # 4.2 10^3/uL (1.5-8.5); NEUTROPHILS % 57.7 % (36.0-66.0); PLATELET COUNT, AUTOMATED 301 10^3/uL (150-450); RED BLOOD COUNT 5.09 10^6/uL (4.30-6.10); WHITE BLOOD COUNT 7.3 10^3/uL (4.0-10.0)
[2020-04-26 16:45] LABS: BLOOD UREA NITROGEN 16 MG/DL (7-18); CARBON DIOXIDE LEVEL 29 MEQ/L (21-32); CHLORIDE LEVEL 103 MEQ/L (98-107); CREATININE FOR GFR 1.04 MG/DL (0.70-1.30); GLOMERULAR FILTRATION RATE > 60.0 (>60); GLUCOSE, FASTING 105 MG/DL (70-100); POTASSIUM SERUM 4.3 MEQ/L (3.5-5.1); SODIUM LEVEL 135 MEQ/L (136-145)
[2020-04-26 16:46] LABS: ALT/SGPT 38 U/L (12-78); BILIRUBIN,TOTAL 0.5 MG/DL (0.2-1.0); CALCIUM LEVEL 9.4 MG/DL (8.5-10.1); TOTAL PROTEIN 7.8 GM/DL (6.4-8.2)
== END ==
LOC: M WUC 10:53
PROVIDERS: ATTEND Internal Medicine Gastroenterology
DX: K58.8 Other irritable bowel syndrome (principal)

== ENCOUNTER → 2020-04-28 | Outpatient (CLI) | payer BC | LOC: M LABSMTC 12:38 | PROVIDERS: ATTEND Anesthesiology | DX: Z01.812 Encounter for preprocedural laboratory examination (principal); Z20.828 Contact with and (suspected) exposure to other viral communicable diseases | CPT/HCPCS: C9803; U0003 ==

== ENCOUNTER 2020-05-03 10:31 | Day surgery (SDC) | payer BC ==
[~2020-05-03] VITALS: Ht 180.3 cm; Wt 114.5 kg
[~2020-05-03 10:31] MED LIST changes: +NS 1,000 ML IV ONE
[2020-05-03] MEDS ORDERED: propofoL 200 MG/20 ML VIAL As Ordered ONE (12:48)
[2020-05-03] MEDS ORDERED: LIDOCAINE 2% 100MG/5ML SDV (FOR ANES.) As Ordered ONE (12:48)
--- NOTE | 2020-05-03 12:52 | ROOR ---
Patient Name: Amos Matthews Procedure Date: 05/03/2020 12:19 PM Date of : 1970 Age: 49 Room: [facility] Gender: Male Note Status: Finalized Procedure: Total Colonoscopy to Cecum + ileoscopy + Bx Indications: Rectal bleeding, Change in bowel habits Providers: James Gillis MD Referring MD: Maricruz PUENTE Requesting Provider: Medicines: Monitored Anesthesia Care Complications: No immediate complications. Procedure: Pre-Anesthesia Assessment: - The heart rate, respiratory rate, oxygen saturations, blood pressure, adequacy of pulmonary ventilation, and response to care were monitored throughout the procedure. The Colonoscope was introduced through the anus and advanced to the terminal ileum, with identification of the appendiceal orifice and IC valve. The colonoscopy was performed without difficulty. The patient tolerated the procedure well. The quality of the bowel preparation was excellent. Findings: The perianal and digital rectal examinations were normal. Non-bleeding internal hemorrhoids were found during retroflexion. The hemorrhoids were small and Grade I (internal hemorrhoids that do not prolapse). Inflammation characterized by altered vascularity, congestion (edema), erosions, erythema, friability, granularity and loss of vascularity was found in a continuous and circumferential pattern in the rectum, in the sigmoid colon and in the descending colon. The transverse colon, the hepatic flexure, the ascending colon, the cecum and the ileocecal valve were spared. This was moderate in severity, and when compared to previous examinations, the findings are new. Biopsies were taken with a cold forceps for histology. The exam was otherwise without abnormality on direct and retroflexion views. The terminal ileum appeared normal. Impression: - Non-bleeding internal hemorrhoids. - Left-sided ulcerative colitis. Inflammation was found in the rectum, in the sigmoid colon and in the descending colon. This was moderate in severity, new compared to previous examinations. Biopsied. - The examination was otherwise normal on direct and retroflexion views. - The exam was otherwise normal to the cecum. - The examined portion of the ileum was normal. Recommendation: - Patient has a contact number available for emergencies. The signs and symptoms of potential delayed complications were discussed with the patient. Return to normal activities tomorrow. Written discharge instructions were provided to the patient. - Discharge patient to home. - Use prednisone 20 mg PO once a day. - Use Delzicol 400 mg 2 tabs PO TID. - Telephone GI clinic for pathology results in 1 week. - Return to GI office in 6 weeks. - The findings and recommendations were discussed with the patient. James Gillis MD James Gillis MD 05/03/2020 12:52:37 PM Electronically signed by James Gillis MD Number of Addenda: 0 Note Initiated On: 05/03/2020 12:19 PM Estimated Blood Loss: Estimated blood loss: none.
[2020-05-03 13:27] VITALS: BP 122/71
== END 2020-05-03 13:30 | disposition home or self-care (01) ==
LOC: M OPP 10:31
PROVIDERS: ATTEND Internal Medicine Gastroenterology
DX: K51.511 Left sided colitis with rectal bleeding (principal); K64.0 First degree hemorrhoids; R19.4 Change in bowel habit; K62.5 Hemorrhage of anus and rectum; I10 Essential (primary) hypertension; Z79.899 Other long term (current) drug therapy; Z88.5 Allergy status to narcotic agent; Z88.8 Allergy status to other drugs, medicaments and biological substances; Z87.891 Personal history of nicotine dependence

== ENCOUNTER → 2020-07-22 | Outpatient (REF) | payer BC ==
[~2020-07-22] MED LIST changes: -NS 1,000 ML IV ONE
== END ==
LOC: M LAB REF 12:05
PROVIDERS: ATTEND Internal Medicine Gastroenterology
DX: K58.8 Other irritable bowel syndrome (principal)

== ENCOUNTER 2020-07-31 11:43 | Emergency (ER) | payer BC ==
[~2020-07-31] VITALS: Ht 185.4 cm; Wt 110.9 kg
[2020-07-31 11:43] VITALS: BP 131/88
[2020-07-31] MEDS ORDERED: PRED20TA PO (11:51)
[2020-07-31] MEDS ORDERED: MESA400C2 PO (11:51)
[2020-07-31] MEDS ORDERED: PERCOCET 5MG/325MG TAB PO ONE (12:15)
[2020-07-31] MEDS ORDERED: NITR2OI TOP (12:32)
[2020-07-31] MEDS ORDERED: PROC1CRE TOP (12:32)
== END 2020-07-31 13:02 | disposition home or self-care (01) ==
LOC: M ED 11:43
DX: K64.4 Residual hemorrhoidal skin tags (principal); K60.0 Acute anal fissure; K51.90 Ulcerative colitis, unspecified, without complications; I10 Essential (primary) hypertension; E78.5 Hyperlipidemia, unspecified; K21.9 Gastro-esophageal reflux disease without esophagitis; K59.00 Constipation, unspecified; Z88.5 Allergy status to narcotic agent; Z88.8 Allergy status to other drugs, medicaments and biological substances; Z79.899 Other long term (current) drug therapy; Z79.52 Long term (current) use of systemic steroids

== ENCOUNTER → 2021-02-27 | Outpatient (CLI) | payer BC ==
[~2021-02-27] MED LIST changes: +LISI10TA22 PO; -LISI10TA4 PO; +MESA400C2 PO; +NITR2OI TOP; +OMEP40CA4 PO; -OMEP40CA97 PO; +PRED20TA PO; +PROC1CRE TOP
[2021-02-27 10:38] LABS: BASO # 0.1 10^3/uL (0.0-0.2); BASO % 0.8 % (0.0-1.0); EOS # 0.2 10^3/uL (0.0-0.5); HEMATOCRIT 46.6 % (42.0-52.0); HEMOGLOBIN 15.4 g/dl (13.5-17.5); LYMPH # 3.7 10^3/uL (1.5-5.0); LYMPH % 38.6 % (24.0-44.0); MEAN CORPUSCULAR HEMOGLOBIN 29.3 pg (27.0-33.0); MEAN CORPUSCULAR VOLUME 88.6 fl (80.0-96.0); MONO # 0.9 10^3/uL (0.0-0.8); NEUTROPHILS # 4.7 10^3/uL (1.5-8.5); NEUTROPHILS % 49.4 % (36.0-66.0); PLATELET COUNT, AUTOMATED 240 10^3/uL (150-450); RED BLOOD COUNT 5.26 10^6/uL (4.30-6.10); WHITE BLOOD COUNT 9.6 10^3/uL (4.0-10.0)
[2021-02-27 11:11] LABS: ALT/SGPT 49 U/L (12-78); BILIRUBIN,TOTAL 0.7 MG/DL (0.2-1.0); BLOOD UREA NITROGEN 25 MG/DL (7-18); CALCIUM LEVEL 9.3 MG/DL (8.5-10.1); CARBON DIOXIDE LEVEL 32 MEQ/L (21-32); CHLORIDE LEVEL 105 MEQ/L (98-107); CHOLESTEROL LEVEL 237 MG/DL (<200); CHOLESTEROL RISK RATIO 4.232 (<5); CREATININE FOR GFR 1.05 MG/DL (0.70-1.30); GLOMERULAR FILTRATION RATE > 60.0 (>60); GLUCOSE, FASTING 112 MG/DL (70-100); HDL CHOLESTEROL 56 MG/DL (>40); LDL CHOLESTEROL 166 MG/DL (<100); NON-HDL-C 181 MG/DL; POTASSIUM SERUM 3.9 MEQ/L (3.5-5.1); SODIUM LEVEL 141 MEQ/L (136-145); TOTAL PROTEIN 7.6 GM/DL (6.4-8.2); TRIGLYCERIDES LEVEL 74 MG/DL (<150); URIC ACID 5.1 MG/DL (3.5-7.2)
[2021-02-27 11:59] LABS: HEMOGLOBIN A1c 6.2 %
== END ==
LOC: M PLALAB 09:17
PROVIDERS: ATTEND Family Medicine
DX: M10.9 Gout, unspecified (principal); E11.9 Type 2 diabetes mellitus without complications

== ENCOUNTER → 2021-05-25 | Outpatient (CLI) | payer BC, OTHER ==
[~2021-05-25] MED LIST changes: +ISOVUE-300 61% 50ML VIAL As Ordered ONE; +PROHANCE 279.3MG/ML 5ML VIAL As Ordered ONE
--- NOTE | 2021-05-25 09:57 | REP ---
INDICATION: PAIN IN RT SHOULDER. COMPARISON: 06/10/2019. TECHNIQUE: Coronal oblique T1, T2 fat sat, sagittal oblique T2 fat sat, axial T2 fat sat, gradient echo. Post arthrogram T1 fat sat and T2 fat sat in multiple planes. FINDINGS: Rotator cuff: There is stable tendinopathy/tendinitis of the subscapularis tendon. There is tendinopathy/tendinitis of the supraspinatus and infraspinatus tendon. There is a partial undersurface tear of the distal supraspinatus tendon. Acromioclavicular joint: There are mild hypertrophic changes at the acromioclavicular joint. Acromion: Type 2 Biceps Tendon: The patient is status post biceps tenodesis. Hill Sach's deformity: None. Deltoid muscle: No abnormal signal. Labrum: There is a new SLAP tear. There is an inferior labral tear which appears similar to the prior study. There is a new anterior labral tear. There is a posterior labral tear which appears similar to the prior exam. Cartilage: There is moderate diffuse chondromalacia of the glenohumeral joint. Bone marrow: Subcortical cystic changes are again seen in the superior humeral head. Joint fluid: There is a small joint effusion. IMPRESSION: Tendinopathy/tendinitis of the subscapularis, supraspinatus and infraspinatus tendons. There is a partial undersurface tear of the distal supraspinatus tendon. There is a new SLAP tear. There is a new with anterior labral tear. There are stable appearing inferior and posterior labral tears. <Electronically signed by Miguel Rosales > 05/25/21 [id number]
--- NOTE | 2021-05-25 18:01 | REP ---
INDICATION: PAIN IN RT SHOULDER. COMPARISON: None TECHNIQUE: The procedure was performed by ULI Javed, under the direct supervision of Dr. Rosales. The benefits and risks of the procedure were explained to the patient, and an informed consent was obtained. Directly prior to the start of the procedure, a formal time-out was completed in the procedure room. The right shoulder joint space was localized using fluoroscopic guidance. The skin was prepped and draped in a sterile fashion. Approximately 5 mL of 1% Lidocaine 10 mg/ml was used as a local anesthetic. Using fluoroscopic guidance, a #22 gauge spinal needle was inserted and advanced into the right shoulder joint space. Approximately 1 mL of Isovue 300 was injected to verify placement. Ten mL of a solution containing 20 mL of sterile saline and 0.15 mL of ProHance was injected into the joint space. The needle was removed and the patient was taken to MRI for post procedural imaging. FINDINGS: The patient tolerated the procedure well and there were no immediate complications. IMPRESSION: Technically successful right shoulder arthrogram. MRI imaging to follow. 0.1 minutes of fluoroscopy time was utilized for this procedure. Some fluoroscopic images are performed with last image hold technology. These images require no additional radiation. <Electronically signed by Nena Cobb > 05/25/21 [id number] <Electronically signed by Miguel Rosales > 05/25/21 [id number]
== END ==
LOC: M RADPRO 06:50
PROVIDERS: ATTEND Physician Assistant
DX: R93.7 Abnormal findings on diagnostic imaging of other parts of musculoskeletal system (principal); M25.511 Pain in right shoulder
CPT/HCPCS: 23350; 73223; 77002; A9576; Q9967

== ENCOUNTER → 2022-06-07 | Outpatient (CLI) | payer OTHER ==
[~2022-06-07] MED LIST changes: -CEFD1CAP8 PO; +CEFD300C41 PO; -ISOVUE-300 61% 50ML VIAL As Ordered ONE; -PROHANCE 279.3MG/ML 5ML VIAL As Ordered ONE
[2022-06-07 13:19] LABS: ALBUMIN 3.9 GM/DL (3.2-5.2); ALT/SGPT 63 U/L (12-78); BILIRUBIN,TOTAL 0.7 MG/DL (0.2-1.0); BLOOD UREA NITROGEN 19 MG/DL (7-18); CALCIUM LEVEL 9.1 MG/DL (8.5-10.1); CARBON DIOXIDE LEVEL 28 MEQ/L (21-32); CHLORIDE LEVEL 104 MEQ/L (98-107); CHOLESTEROL LEVEL 225 MG/DL (<200); CHOLESTEROL RISK RATIO 4.326 (<5); CREATININE FOR GFR 0.97 MG/DL (0.70-1.30); GLOMERULAR FILTRATION RATE > 60.0 (>56); GLUCOSE, FASTING 129 MG/DL (70-100); HDL CHOLESTEROL 52 MG/DL (>40); LDL CHOLESTEROL 150 MG/DL (<100); NON-HDL-C 173 MG/DL; SODIUM LEVEL 139 MEQ/L (136-145); TOTAL PROTEIN 7.4 GM/DL (6.4-8.2); TRIGLYCERIDES LEVEL 116 MG/DL (<150); URIC ACID 3.5 MG/DL (3.5-7.2)
[2022-06-07 13:46] LABS: HEMOGLOBIN A1c 7.8 %
== END ==
LOC: M WUC 09:16
PROVIDERS: ATTEND Nurse Practitioner Family
DX: M10.9 Gout, unspecified (principal); E11.9 Type 2 diabetes mellitus without complications

== ENCOUNTER → 2023-08-20 | Outpatient (CLI) | payer BC ==
[~2023-08-20] MED LIST changes: +CEFD1CAP9 PO; -CEFD300C41 PO
[2023-08-20 10:23] LABS: BASO # 0.1 10^3/uL (0.0-0.2); BASO % 0.8 % (0.0-1.0); EOS # 0.2 10^3/uL (0.0-0.5); EOS % 1.4 % (0.0-3.0); HEMATOCRIT 44.9 % (42.0-52.0); HEMOGLOBIN 15.2 g/dl (13.5-17.5); LYMPH # 3.7 10^3/uL (1.5-5.0); LYMPH % 35.8 % (24.0-44.0); MEAN CORPUSCULAR HEMOGLOBIN 29.3 pg (27.0-33.0); MEAN CORPUSCULAR HGB CONC 33.9 g/dl (32.0-36.5); MEAN CORPUSCULAR VOLUME 86.5 fl (80.0-96.0); MONO # 1.2 10^3/uL (0.0-0.8); MONO % 11.8 % (2.0-8.0); NEUTROPHILS # 5.2 10^3/uL (1.5-8.5); NEUTROPHILS % 49.4 % (36.0-66.0); PLATELET COUNT, AUTOMATED 275 10^3/uL (150-450); RED BLOOD COUNT 5.19 10^6/uL (4.30-6.10); WHITE BLOOD COUNT 10.4 10^3/uL (4.0-10.0)
[2023-08-20 10:46] LABS: URIC ACID 3.9 MG/DL (3.7-9.2)
[2023-08-20 10:48] LABS: HEMOGLOBIN A1c 13.3 % (4.0-6.0)
[2023-08-20 10:49] LABS: ALBUMIN 3.7 G/DL (3.2-5.2); ALKALINE PHOSPHATASE 95 U/L (46-116); ALT/SGPT 27 U/L (7.0-40); AST/SGOT 9 U/L (<34); BILIRUBIN,TOTAL 0.7 MG/DL (0.3-1.2); BLOOD UREA NITROGEN 15 MG/DL (9-23); CALCIUM LEVEL 9.4 MG/DL (8.5-10.1); CARBON DIOXIDE LEVEL 32 MMOL/L (20-31); CHLORIDE LEVEL 99 MMOL/L (98-107); CHOLESTEROL LEVEL 241 MG/DL (<200); CHOLESTEROL RISK RATIO 5.83 (<5); CREATININE FOR GFR 0.82 MG/DL (0.70-1.30); GLOMERULAR FILTRATION RATE > 60.0 (>56); GLUCOSE, FASTING 268 MG/DL (60-100); HDL CHOLESTEROL 41.3 MG/DL (>40); LDL CHOLESTEROL 170.7 MG/DL (<100); NON-HDL-C 199.7 MG/DL; POTASSIUM SERUM 3.8 MMOL/L (3.5-5.1); SODIUM LEVEL 137 MMOL/L (136-145); TOTAL PROTEIN 7.4 G/DL (5.7-8.2); TRIGLYCERIDES LEVEL 145 MG/DL (<150)
== END ==
LOC: M WUC 08:42
PROVIDERS: ATTEND Nurse Practitioner Family
DX: E11.9 Type 2 diabetes mellitus without complications (principal); I10 Essential (primary) hypertension; E78.2 Mixed hyperlipidemia; M10.9 Gout, unspecified; K51.90 Ulcerative colitis, unspecified, without complications

== ENCOUNTER → 2023-11-22 | Outpatient (REF) | payer BC ==
[2023-11-22 13:06] LABS: HEMOGLOBIN A1c 8.3 % (4.0-6.0)
== END ==
LOC: M LABWUC 11:27
PROVIDERS: ATTEND Nurse Practitioner Family
DX: E11.9 Type 2 diabetes mellitus without complications (principal)

== ENCOUNTER → 2023-12-25 | Outpatient (CLI) | payer BC ==
[2023-12-25 12:18] LABS: HEMATOCRIT 42.1 % (42.0-52.0); HEMOGLOBIN 14.1 g/dl (13.5-17.5); MEAN CORPUSCULAR HEMOGLOBIN 28.9 pg (27.0-33.0); MEAN CORPUSCULAR HGB CONC 33.5 g/dl (32.0-36.5); MEAN CORPUSCULAR VOLUME 86.3 fl (80.0-96.0); PLATELET COUNT, AUTOMATED 281 10^3/uL (150-450); RED BLOOD COUNT 4.88 10^6/uL (4.30-6.10); WHITE BLOOD COUNT 12.3 10^3/uL (4.0-10.0)
[2023-12-25 12:27] LABS: ERYTHROCYTE SEDIMENTATION RATE 28 mm/hr (0-20)
[2023-12-25 12:41] LABS: C REACTIVE PROTEIN QUANTITATIV < 0.40 MG/DL (<1.0)
[2023-12-25 12:43] LABS: ALBUMIN 3.4 G/DL (3.2-5.2); ALKALINE PHOSPHATASE 83 U/L (46-116); ALT/SGPT 23 U/L (7.0-40); AST/SGOT 9 U/L (<34); BILIRUBIN,TOTAL 0.5 MG/DL (0.3-1.2); BLOOD UREA NITROGEN 23 MG/DL (9-23); CALCIUM LEVEL 8.9 MG/DL (8.5-10.1); CARBON DIOXIDE LEVEL 26 MMOL/L (20-31); CHLORIDE LEVEL 100 MMOL/L (98-107); CREATININE FOR GFR 0.85 MG/DL (0.70-1.30); GLOMERULAR FILTRATION RATE > 60.0 (>56); GLUCOSE, FASTING 253 MG/DL (60-100); SODIUM LEVEL 133 MMOL/L (136-145); TOTAL PROTEIN 6.9 G/DL (5.7-8.2)
== END ==
LOC: M WUC 09:03
PROVIDERS: ATTEND Internal Medicine Gastroenterology
DX: K51.50 Left sided colitis without complications (principal)

== ENCOUNTER 2024-04-24 14:59 | Inpatient (IN) | payer BC ==
[~2024-04-24] VITALS: Ht 182.9 cm; Wt 107.5 kg
[~2024-04-24 14:59] MED LIST changes: +ONDA-284 PO; -ONDA8TAB8 PO
[2024-04-24 16:40] LABS: BASO # 0.1 10^3/uL (0.0-0.2); BASO % 0.5 % (0.0-1.0); EOS # 0.1 10^3/uL (0.0-0.5); HEMATOCRIT 42.3 % (42.0-52.0); HEMOGLOBIN 14.4 g/dl (13.5-17.5); LYMPH # 1.1 10^3/uL (1.5-5.0); LYMPH % 10.6 % (24.0-44.0); MEAN CORPUSCULAR HEMOGLOBIN 28.9 pg (27.0-33.0); MEAN CORPUSCULAR VOLUME 84.8 fl (80.0-96.0); MONO # 1.1 10^3/uL (0.0-0.8); NEUTROPHILS # 7.8 10^3/uL (1.5-8.5); NEUTROPHILS % 76.7 % (36.0-66.0); PLATELET COUNT, AUTOMATED 209 10^3/uL (150-450); RED BLOOD COUNT 4.99 10^6/uL (4.30-6.10); WHITE BLOOD COUNT 10.2 10^3/uL (4.0-10.0)
[2024-04-24 17:00] LABS: LIPASE 37 U/L (12-53)
[2024-04-24 17:02] LABS: ALBUMIN 3.6 G/DL (3.2-5.2); ALKALINE PHOSPHATASE 89 U/L (46-116); ALT/SGPT 28 U/L (7.0-40); AST/SGOT 13 U/L (<34); BILIRUBIN,DIRECT 0.3 MG/DL (<0.4); BILIRUBIN,TOTAL 0.9 MG/DL (0.3-1.2); BLOOD UREA NITROGEN 15 MG/DL (9-23); CALCIUM LEVEL 9.5 MG/DL (8.5-10.1); CARBON DIOXIDE LEVEL 28 MMOL/L (20-31); CHLORIDE LEVEL 103 MMOL/L (98-107); CREATININE FOR GFR 0.98 MG/DL (0.70-1.30); GLOMERULAR FILTRATION RATE > 60.0 (>56); GLUCOSE, FASTING 153 MG/DL (60-100); POTASSIUM SERUM 3.7 MMOL/L (3.5-5.1); SODIUM LEVEL 136 MMOL/L (136-145); TOTAL PROTEIN 7.3 G/DL (5.7-8.2)
[2024-04-24] MEDS: KETOROLAC 30 MG/ML 1ML VIAL IV ONE (17:45)
[2024-04-24] MEDS: diphenhydrAMINE 50MG/ML VIAL IV ONE (17:45)
[2024-04-24] MEDS: methylPREDNISolone 125MG 2ML VIAL IV ONE (17:46)
[2024-04-24] MEDS: NS 1,000 ML IV ONE (17:46)
[2024-04-24] MEDS: CEFEPIME HCL 2 GM in D5W MINI-BAG PLUS 50 ML IV ONE (19:15)
[2024-04-24] MEDS ORDERED: ALLO300T2 PO (19:19)
[2024-04-24] MEDS ORDERED: HYDR50TA70 PO (19:24)
[2024-04-24] MEDS ORDERED: HOME MED LIST COMPLETE! XX SCH (19:25)
[2024-04-24] MEDS ORDERED: HYDROMORPHONE HCL 0.5 MG/ 0.5 ML SYRINGE IV PRN (20:45)
[2024-04-24] MEDS: NS 1,000 ML IV SCH (21:10)
[2024-04-24 21:35] VITALS: BP 106/65; TEMP 97.5; O2SAT 92
[2024-04-25] VITALS (10 sets, daily range): BP systolic 96–99; BP diastolic 59–65; TEMP 97.1–97.5; O2SAT 87–95
[2024-04-25 06:29] LABS: HEMATOCRIT 39.4 % (42.0-52.0); HEMOGLOBIN 13.7 g/dl (13.5-17.5); MEAN CORPUSCULAR HEMOGLOBIN 29.2 pg (27.0-33.0); MEAN CORPUSCULAR HGB CONC 34.8 g/dl (32.0-36.5); PLATELET COUNT, AUTOMATED 198 10^3/uL (150-450); RED BLOOD COUNT 4.69 10^6/uL (4.30-6.10); WHITE BLOOD COUNT 12.4 10^3/uL (4.0-10.0)
[2024-04-25 07:06] LABS: ALBUMIN 3.2 G/DL (3.2-5.2); ALKALINE PHOSPHATASE 75 U/L (46-116); ALT/SGPT 22 U/L (7.0-40); AST/SGOT 8 U/L (<34); BILIRUBIN,TOTAL 0.9 MG/DL (0.3-1.2); BLOOD UREA NITROGEN 24 MG/DL (9-23); CALCIUM LEVEL 8.8 MG/DL (8.5-10.1); CARBON DIOXIDE LEVEL 22 MMOL/L (20-31); CHLORIDE LEVEL 104 MMOL/L (98-107); CREATININE FOR GFR 0.88 MG/DL (0.70-1.30); GLOMERULAR FILTRATION RATE > 60.0 (>56); GLUCOSE, FASTING 256 MG/DL (60-100); POTASSIUM SERUM 4.2 MMOL/L (3.5-5.1); SODIUM LEVEL 133 MMOL/L (136-145); TOTAL PROTEIN 6.8 G/DL (5.7-8.2)
[2024-04-25] MEDS: ceFAZolin 2 GM/D5W 50 ML IV BAG As Ordered ONE (08:48)
[2024-04-25] MEDS ORDERED: dexmedeTOMIDine (4MCG/ML)200MCG/50ML BTL (PRECEDEX) As Ordered ONE (08:54)
[2024-04-25] MEDS ORDERED: propofoL 200 MG/20 ML VIAL As Ordered ONE (08:54)
[2024-04-25] MEDS ORDERED: LIDOCAINE 2% 100MG/5ML SDV (FOR ANES.) As Ordered ONE (08:54)
[2024-04-25] MEDS ORDERED: ONDANSETRON 4MG 2ML VIAL As Ordered ONE (08:54)
[2024-04-25] MEDS ORDERED: ROCURONIUM BROMIDE 50MG/5ML VIAL As Ordered ONE (08:54)
[2024-04-25] MEDS ORDERED: SUGAMMADEX SODIUM 500 MG/5 ML VIAL (BRIDION) As Ordered ONE (08:54)
[2024-04-25] MEDS ORDERED: fentaNYL 250 MCG/5 ML INJECTION As Ordered ONE (08:54)
[2024-04-25] MEDS ORDERED: MIDAZOLAM INJ 2MG/2ML VIAL As Ordered ONE (08:54)
[2024-04-25] MEDS ORDERED: SUCCINYLCHOLINE 100MG/5ML SYRINGE As Ordered ONE (09:00)
[2024-04-25] MEDS ORDERED: ACETAMINOPHEN 1000MG 100ML IV BAG As Ordered ONE (09:04)
[2024-04-25] MEDS ORDERED: ESMOLOL INJ 100MG/10ML VIAL As Ordered ONE (09:24)
[2024-04-25] MEDS ORDERED: ONDANSETRON 4MG 2ML VIAL IV PRN (09:45)
[2024-04-25] MEDS ORDERED: METOCLOPRAMIDE INJ 10MG/2ML VIAL IV PRN (09:45)
[2024-04-25] MEDS ORDERED: diphenhydrAMINE 50MG/ML VIAL IV PRN (09:45)
[2024-04-25] MEDS ORDERED: fentaNYL 100 MCG/2 ML INJECTION IV PRN (09:45)
[2024-04-25] MEDS ORDERED: MEPERIDINE 25 MG/ML 1ML VIAL IV PRN (09:45)
[2024-04-25] MEDS: LR 1,000 ML IV SCH (09:45)
[2024-04-25] MEDS ORDERED: oxyCODONE 5MG TAB PO PRN ×3 (09:45→10:05)
[2024-04-25] MEDS: KETOROLAC 30 MG/ML 1ML VIAL IV PRN (17:51)
[2024-04-25] MEDS: PIPERACILLIN/TAZOBACTAM SOD 3.375 GM in D5W MINI-BAG PLUS 50 ML IV SCH (20:26)
[2024-04-25] MEDS: oxyCODONE 5MG TAB PO PRN (20:30)
[2024-04-26 00:45] VITALS: BP 104/62; TEMP 97.7; O2SAT 93
[2024-04-26 04:00] VITALS: BP 94/58; TEMP 97; O2SAT 94
[2024-04-26 08:00] VITALS: BP 96/58; TEMP 97.6; O2SAT 93
[2024-04-26] MEDS: MIDODRINE 5 MG TAB PO ONE (08:10)
[2024-04-26 08:34] LABS: BASO % 0.2 % (0.0-1.0); EOS % 0.2 % (0.0-3.0); HEMATOCRIT 37.4 % (42.0-52.0); HEMOGLOBIN 12.6 g/dl (13.5-17.5); LYMPH # 1.5 10^3/uL (1.5-5.0); LYMPH % 12.3 % (24.0-44.0); MEAN CORPUSCULAR HEMOGLOBIN 28.8 pg (27.0-33.0); MEAN CORPUSCULAR HGB CONC 33.7 g/dl (32.0-36.5); MEAN CORPUSCULAR VOLUME 85.4 fl (80.0-96.0); MONO # 0.9 10^3/uL (0.0-0.8); MONO % 7.5 % (2.0-8.0); NEUTROPHILS # 9.8 10^3/uL (1.5-8.5); NEUTROPHILS % 79.3 % (36.0-66.0); PLATELET COUNT, AUTOMATED 190 10^3/uL (150-450); RED BLOOD COUNT 4.38 10^6/uL (4.30-6.10); WHITE BLOOD COUNT 12.3 10^3/uL (4.0-10.0)
[2024-04-26 08:56] LABS: ALBUMIN 2.9 G/DL (3.2-5.2); ALKALINE PHOSPHATASE 71 U/L (46-116); ALT/SGPT 16 U/L (7.0-40); AST/SGOT < 8 U/L (<34); BILIRUBIN,TOTAL 0.4 MG/DL (0.3-1.2); BLOOD UREA NITROGEN 21 MG/DL (9-23); CALCIUM LEVEL 8.5 MG/DL (8.5-10.1); CARBON DIOXIDE LEVEL 28 MMOL/L (20-31); CHLORIDE LEVEL 107 MMOL/L (98-107); CREATININE FOR GFR 0.82 MG/DL (0.70-1.30); GLOMERULAR FILTRATION RATE > 60.0 (>56); GLUCOSE, FASTING 280 MG/DL (60-100); POTASSIUM SERUM 4.2 MMOL/L (3.5-5.1); SODIUM LEVEL 138 MMOL/L (136-145); TOTAL PROTEIN 6.5 G/DL (5.7-8.2)
[2024-04-26] MEDS: NS 500 ML IV ONE (09:20)
[2024-04-26] MEDS: ACETAMINOPHEN TAB 650MG DOSE (2X325MG) PO PRN (11:45)
[2024-04-26 11:48] VITALS: BP 105/73; TEMP 97; O2SAT 94
[2024-04-26] MEDS ORDERED: INSULIN LISPRO (NovoLOG) PER UNIT SC SCH ×2 (12:00→21:00)
[2024-04-26] MEDS ORDERED: AMOX875T2 PO (12:11)
[2024-04-26] MEDS ORDERED: OXYC-517 PO (12:18)
[2024-04-26] MEDS ORDERED: SENO8.6T10 PO (12:18)
[2024-04-26] MEDS ORDERED: SELF1KIT MC (12:18)
[2024-04-26] MEDS ORDERED: GLUCOSE 4 GM CHEW PO PRN (12:25)
[2024-04-26] MEDS ORDERED: DEXTROSE 50% 50ML SYRINGE IV PRN (12:25)
[2024-04-26] MEDS ORDERED: GLUCAGON INJ 1MG VIAL SC PRN (12:25)
== END 2024-04-26 14:05 | disposition home or self-care (01) | DRG 225 ==
LOC: M ED 14:59 → M ED INP 20:03 → M MS5PR 21:32
PROVIDERS: ADMIT Preventive Medicine Undersea and Hyperbaric Medicine; ATTEND General Practice
PROC: 8E0W4CZ Robotic Assisted Procedure of Trunk Region, Percutaneous Endoscopic Approach (ICD-10-PCS; 2024-04-25)
PROC: 0DTJ4ZZ Resection of Appendix, Percutaneous Endoscopic Approach (ICD-10-PCS; principal; 2024-04-25 08:00)
DX: K35.80 Unspecified acute appendicitis (principal); I95.2 Hypotension due to drugs; K51.90 Ulcerative colitis, unspecified, without complications; I10 Essential (primary) hypertension; E78.5 Hyperlipidemia, unspecified; M10.9 Gout, unspecified; Z79.1 Long term (current) use of non-steroidal anti-inflammatories (NSAID); Z79.899 Other long term (current) drug therapy; Z88.5 Allergy status to narcotic agent; Z88.8 Allergy status to other drugs, medicaments and biological substances; E66.9 Obesity, unspecified; Z68.32 Body mass index [BMI] 32.0-32.9, adult; R73.9 Hyperglycemia, unspecified; T40.2X5A Adverse effect of other opioids, initial encounter

== ENCOUNTER → 2024-06-05 | Outpatient (CLI) | payer BC ==
[~2024-06-05] MED LIST changes: +ALLO300T2 PO; +AMOX875T2 PO; +HYDR50TA70 PO; +OXYC-517 PO; +SELF1KIT MC; +SENO8.6T10 PO
[2024-06-05 11:32] LABS: HEMOGLOBIN A1c 7.7 % (4.0-6.0)
== END ==
LOC: M WUC 08:41
PROVIDERS: ATTEND Nurse Practitioner Family
DX: E11.9 Type 2 diabetes mellitus without complications (principal)

== ENCOUNTER → 2024-06-05 | Outpatient (CLI) | payer BC ==
[2024-06-05 11:21] LABS: HEMATOCRIT 44.3 % (42.0-52.0); HEMOGLOBIN 14.6 g/dl (13.5-17.5); MEAN CORPUSCULAR HEMOGLOBIN 28.1 pg (27.0-33.0); MEAN CORPUSCULAR VOLUME 85.2 fl (80.0-96.0); PLATELET COUNT, AUTOMATED 245 10^3/uL (150-450)
[2024-06-05 11:29] LABS: ERYTHROCYTE SEDIMENTATION RATE 21 mm/hr (0-20)
[2024-06-05 11:43] LABS: C REACTIVE PROTEIN QUANTITATIV < 0.40 MG/DL (<1.0)
[2024-06-05 11:44] LABS: TOTAL 25(OH) VITAMIN D 23.3 NG/ML (20.0-100.0)
[2024-06-05 11:45] LABS: ALBUMIN 3.5 G/DL (3.2-5.2); ALKALINE PHOSPHATASE 91 U/L (40-129); ALT/SGPT 34 U/L (7.0-40); AST/SGOT 23 U/L (<34); BILIRUBIN,TOTAL 0.6 MG/DL (0.3-1.2); BLOOD UREA NITROGEN 16 MG/DL (9-23); CALCIUM LEVEL 9.5 MG/DL (8.5-10.1); CARBON DIOXIDE LEVEL 27 MMOL/L (20-31); CHLORIDE LEVEL 103 MMOL/L (98-107); CREATININE FOR GFR 0.73 MG/DL (0.70-1.30); GLOMERULAR FILTRATION RATE > 60.0 (>56); GLUCOSE, FASTING 158 MG/DL (60-100); POTASSIUM SERUM 4.1 MMOL/L (3.5-5.1); SODIUM LEVEL 138 MMOL/L (136-145); TOTAL PROTEIN 7.5 G/DL (5.7-8.2); VITAMIN B12 LEVEL 420 PG/ML (211-911)
== END ==
LOC: M WUC 08:43
PROVIDERS: ATTEND Internal Medicine Gastroenterology
DX: K51.50 Left sided colitis without complications (principal)

== ENCOUNTER → 2024-06-18 | Outpatient (CLI) | payer BC ==
[2024-06-18 12:01] LABS: BASO % 1.2 % (0.0-1.0); EOS # 0.2 10^3/uL (0.0-0.5); EOS % 5.3 % (0.0-3.0); HEMATOCRIT 42.3 % (42.0-52.0); HEMOGLOBIN 14.1 g/dl (13.5-17.5); LYMPH # 1.3 10^3/uL (1.5-5.0); LYMPH % 37.5 % (24.0-44.0); MEAN CORPUSCULAR HEMOGLOBIN 28.7 pg (27.0-33.0); MEAN CORPUSCULAR HGB CONC 33.3 g/dl (32.0-36.5); MONO # 0.7 10^3/uL (0.0-0.8); MONO % 19.4 % (2.0-8.0); NEUTROPHILS # 1.2 10^3/uL (1.5-8.5); NEUTROPHILS % 36.3 % (36.0-66.0); PLATELET COUNT, AUTOMATED 222 10^3/uL (150-450); RED BLOOD COUNT 4.92 10^6/uL (4.30-6.10); WHITE BLOOD COUNT 3.4 10^3/uL (4.0-10.0)
[2024-06-18 12:20] LABS: URIC ACID 3.7 MG/DL (3.7-9.2)
[2024-06-18 12:23] LABS: C REACTIVE PROTEIN QUANTITATIV < 0.40 MG/DL (<1.0); ERYTHROCYTE SEDIMENTATION RATE 19 mm/hr (0-20)
[2024-06-18 12:24] LABS: ALBUMIN 3.4 G/DL (3.2-5.2); ALKALINE PHOSPHATASE 94 U/L (40-129); ALT/SGPT 29 U/L (7.0-40); AST/SGOT 19 U/L (<34); BILIRUBIN,TOTAL 0.6 MG/DL (0.3-1.2); BLOOD UREA NITROGEN 20 MG/DL (9-23); CALCIUM LEVEL 9.4 MG/DL (8.5-10.1); CARBON DIOXIDE LEVEL 27 MMOL/L (20-31); CHLORIDE LEVEL 102 MMOL/L (98-107); CREATININE FOR GFR 0.83 MG/DL (0.70-1.30); GLOMERULAR FILTRATION RATE > 60.0 (>56); GLUCOSE, FASTING 203 MG/DL (60-100); SODIUM LEVEL 136 MMOL/L (136-145); TOTAL PROTEIN 7.3 G/DL (5.7-8.2)
[2024-06-18 12:27] LABS: THYROID STIMULATING HORMONE 1.865 uIU/ML (0.55-4.78)
[2024-06-18 12:28] LABS: FREE T4 1.05 NG/DL (0.89-1.76); RHEUMATOID FACTOR QUANT < 3.5 IU/ML (<14)
[2024-06-19 13:17] LABS: SSA SJOGRENS A <1.0 NEG AI (<1.0 NEG); SSB SJOGRENS B <1.0 NEG AI (<1.0 NEG)
[2024-06-19 13:32] LABS: ANA SCREEN, IFA NEGATIVE (NEGATIVE)
[2024-06-19 23:42] LABS: CYCLIC CITRULLINATED PEPTIDE < 16 UNITS (<20)
== END ==
LOC: M WUC 08:40
PROVIDERS: ATTEND Nurse Practitioner Family
DX: M12.9 Arthropathy, unspecified (principal)

== ENCOUNTER → 2024-12-15 | Outpatient (CLI) | payer OTHER ==
[~2024-12-15] MED LIST changes: +ISOVUE-370 76% 100ML VIAL As Ordered ONE
== END ==
LOC: M RAD 09:49
PROVIDERS: ATTEND Internal Medicine Hematology & Oncology
DX: C7A.020 Malignant carcinoid tumor of the appendix (principal)

== ENCOUNTER 2025-04-01 22:44 | Emergency (ER) | payer OTHER ==
[~2025-04-01 22:44] MED LIST changes: -IBUP-1022 PO; +IBUP600T42 PO; -ISOVUE-370 76% 100ML VIAL As Ordered ONE; +METH2.5T48 PO; +PRED10TA2 PO; +PROBCAP2 PO
== END 2025-04-02 01:45 | disposition expired ==
LOC: M ED 22:44
DX: I46.9 Cardiac arrest, cause unspecified (principal); I10 Essential (primary) hypertension; E78.5 Hyperlipidemia, unspecified; K21.9 Gastro-esophageal reflux disease without esophagitis; M10.9 Gout, unspecified; Z88.8 Allergy status to other drugs, medicaments and biological substances; Z88.5 Allergy status to narcotic agent; Z79.899 Other long term (current) drug therapy; F17.200 Nicotine dependence, unspecified, uncomplicated